=== PATIENT | male | born 1975 | race Two or more races ===

== ENCOUNTER 2018-07-10 15:47 | Emergency (ER) | payer BC ==
[~2018-07-10] VITALS: Ht 170.2 cm; Wt 65.3 kg
--- NOTE | 2018-07-10 15:59 | NUR ---
RIGHT FACIAL SWELLING AND PAIN S/P FELL THIS AM, +ETOH X LAST NIGHT, -LOC. CONCERNED THAT HE WAS STILL BLEEDING. CURRENTLY NO ACTIVE BLEEDING. DENIES DIZZINESS, WEAKNESS, N/V. NO DISCHARGE FROM EARS. PT IS AOX4, AMBULATORY, TACHYCARDIC, RR EVEN AND UNLABORED. NO ACUTE DISTRESS NOTED. READY FOR EVAL.
[2018-07-10] MEDS ORDERED: HYDROCODONE/APAP 5/325MG 1 EACH TABLET ONE (16:15)
[2018-07-10 16:22] LABS: BASOPHILS # (AUTO) 0.1 /CMM (0.0-0.2); BASOPHILS % (AUTO) 0.8 % (0.0-2.0); EOSINOPHILS % (AUTO) 0.2 % (0.0-6.0); HEMATOCRIT 42 % (39-51); HEMOGLOBIN 13.9 g/dL (13.5-17.5); LYMPHOCYTES # (AUTO) 1.5 /CMM (0.8-4.8); LYMPHOCYTES % (AUTO) 16.9 % (20.0-44.0); MEAN CORPUSCULAR HGB CONC 34 g/dl (31.0-36.0); MEAN CORPUSCULAR VOLUME 89 fL (80-96); MONOCYTES # (AUTO) 0.9 /CMM (0.1-1.30); MONOCYTES % (AUTO) 9.6 % (2.0-12.0); NEUTROPHILS # (AUTO) 6.6 /CMM (1.8-8.9); NEUTROPHILS % (AUTO) 72.5 % (43.0-81.0); PLATELET COUNT (AUTO) 297 /CMM (150-450); RED BLOOD CELL COUNT(AUTO) 4.66 MIL/uL (4.5-6.0); WHITE BLOOD COUNT (AUTO) 9.1 K/uL (4.3-11.0)
--- NOTE | 2018-07-10 16:28 | NUR ---
PT TAKEN TO CT VIA [facility]
[2018-07-10 16:29] LABS: CALCIUM, SERUM 8.4 mg/dL (8.5-10.1); CREATININE 0.5 mg/dL (0.6-1.3); POTASSIUM 3.6 mmol/L (3.5-5.1)
[2018-07-10] MEDS ORDERED: HYDROCODONE/APAP 5/325MG 1 EACH TABLET PO ONE (16:30)
[2018-07-10] MEDS ORDERED: LIDOCAINE 1% INJ 50 ML MDV IJ ONE (16:30)
[2018-07-10] MEDS ORDERED: TDAP [DIPH/PERTUSSIS/TET] 0.5 ML VIAL IM ONE ×2 (16:30→16:37)
[2018-07-10] MEDS ORDERED: IV NS 0.9% 1,000 ML BAG IV ONE ×2 (16:30→17:30)
[2018-07-10 16:34] LABS: ALBUMIN 4.1 g/dL (3.4-5.0); BILIRUBIN,TOTAL 0.4 mg/dL (0.2-1.0); TOTAL PROTEIN, SERUM 7.1 g/dL (6.4-8.2)
[2018-07-10] MEDS ORDERED: LIDOCAINE HCL/MPF 1% 30 ML VIAL IJ ONE (16:37)
--- NOTE | 2018-07-10 16:46 | NUR ---
EMT AT BEDSIDE TO CLEAN SITE
[2018-07-10] MEDS ORDERED: GELATIN SPONGE,ABSORBABLE 1 SPONGE SPONGE TP ONE ×2 (17:11→17:30)
[2018-07-10] MEDS ORDERED: CELLULOSE,OXIDIZED 1 EACH EACH MC ONE (17:30)
[2018-07-10] MEDS ORDERED: LORAZEPAM INJ 2 MG/ML VIAL IV ONE (17:30)
[2018-07-10] MEDS ORDERED: Thiamine 100 MG in IV D5W 50 ML IV ONE (17:30)
[2018-07-10] MEDS ORDERED: CELLULOSE,OXIDIZED 1 PKT EACH MC ONE (17:30)
--- NOTE | 2018-07-10 17:44 | NUR ---
Patient discharged to home in stable condition. Written and verbal after care instructions given, INSTRUCTED NOT TO DRIVE. Patient verbalizes understanding of instruction.
[2018-07-10 17:47] VITALS: BP 138/82
== END 2018-07-10 17:42 | disposition home or self-care (01) ==
LOC: ER 15:49
DX: S01.81XA Laceration without foreign body of other part of head, initial encounter (principal); F10.129 Alcohol abuse with intoxication, unspecified; W18.39XA Other fall on same level, initial encounter; Y93.89 Activity, other specified; Y92.89 Other specified places as the place of occurrence of the external cause; Y99.8 Other external cause status; Y90.9 Presence of alcohol in blood, level not specified
CPT/HCPCS: 36415; 70450-TC; 70486-TC; 80053-TC; 85025-TC; 90715; A6403; J3411; J3490; J7030; J7060

== ENCOUNTER 2018-12-19 11:52 | Emergency (ER) | payer BC, MEDICAID ==
[~2018-12-19] VITALS: Ht 172.7 cm; Wt 68.0 kg
[2018-12-19 11:58] VITALS: BP 146/75
== END 2018-12-19 12:23 | disposition home or self-care (01) ==
LOC: ER 12:02
DX: Z76.0 Encounter for issue of repeat prescription (principal); F41.9 Anxiety disorder, unspecified; Z60.2 Problems related to living alone

== ENCOUNTER 2019-01-09 12:00 | Emergency (ER) | payer BC, MEDICAID ==
[~2019-01-09] VITALS: Ht 167.6 cm; Wt 68.5 kg
[2019-01-09 12:07] VITALS: BP 138/104
== END 2019-01-09 12:29 | disposition home or self-care (01) ==
LOC: ER 12:01
DX: F41.1 Generalized anxiety disorder (principal); Z60.2 Problems related to living alone